=== PATIENT | male | born 1995 | race Hispanic/Latino ===

== ENCOUNTER 2018-05-02 23:08 | Emergency (ER) | payer OTHER ==
[~2018-05-02] VITALS: Ht 167.6 cm; Wt 108.4 kg
[~2018-05-02 23:08] MED LIST: PERCOCET 5-3251 EACH PO
[2018-05-02 23:56] LABS: ABSOLUTE BASOPHIL COUNT 0 /CUMM (0.0-0.2); ABSOLUTE EOSINOPHIL COUNT 0.1 /CUMM (0.0-0.7); ABSOLUTE GRANULOCYTE CT 4.7 /CUMM (1.4-6.5); ABSOLUTE LYMPH COUNT 2.1 /CUMM (1.2-3.4); ABSOLUTE MONOCYTE COUNT 0.4 /CUMM (0.10-0.60); BASOPHIL % 0.6 % (0.0-2.0); EOSINOPHIL % 0.7 % (0-5); GRANULOCYTE % 64.4 % (42.2-75.2); HEMATOCRIT 42.4 % (42-52); MEAN CORPUSCULAR HGB 27.2 PG (27.0-31.0); MEAN CORPUSCULAR HGB CONC 33.8 G/DL (33.0-37.0); MEAN CORPUSCULAR VOLUME 80.6 FL (80.0-94.0); MEAN PLATELET VOLUME 8.7 FL (7.4-10.4); PLATELET COUNT 304 /CUMM (130-400); RBC DISTRIBUTION WIDTH 14.7 % (11.5-14.5); RED BLOOD CELL CT 5.26 /CUMM (4.70-6.10); WHITE BLOOD CELL COUNT 7.4 /CUMM (4.8-10.8)
--- NOTE | 2018-05-03 00:03 | ED GENERAL ADULT ---
History of Present Illness General Chief Complaint: General Adult Stated Complaint: PER PT FINGERS TREMBLING,SOB,LIGHTHEAD Source: patient Exam Limitations: no limitations Vital Signs & Intake/Output Vital Signs & Intake/Output Vital Signs Date Time Temp Pulse Resp B/P B/P Pulse O2 O2 Flow FiO2 Mean Ox Delivery Rate 05/03 0111 98.0 74 18 147/90 98 Room Air 05/02 2319 97.6 94 24 161/110 98 Room Air ED Intake and Output 05/03 0000 05/02 1200 Intake Total 0 Output Total Balance 0 Intake, Oral 0 Patient 239 lb Weight Weight Reported by Patient Measurement Method Allergies Coded Allergies: NO KNOWN ALLERGIES (03/06/15) Reconcile Medications Oxycodone HCl/Acetaminophen (Percocet 5-325 MG Tablet) 5 MG-325 MG TABLET 1 TAB PO BID PRN PAIN Triage Note: SEE NURSES NOTES Triage Nurses Notes Reviewed? yes Onset: Abrupt Duration: minute(s): (30), constant, gone now Timing: single episode today Injury Environment: home Severity: mild, moderate No Modifying Factors: none HPI: 22-year-old male with no medical history presents for evaluation of chest tightness shortness of breath tremors and anxiety. Patient states that this started 20 minutes prior to arrival while he was arguing with his girlfriend. Symptoms lasted about 15 minutes and gradually went away. Currently he is a symptomatically feels well. Denies any chest pain shortness of breath dizziness or lightheadedness. He still reports he feels a little shaky. He has never had this before. Denies any alcohol or drug use. No significant family history of early heart disease. He does not take any medications. No recent surgery recent trauma history of PE hemoptysis or lower extremity edema. (Jacob Keller) Past History Travel History Traveled to [place] past 21 day No Medical History Any Pertinent Medical History? see below for history Neurological: NONE EENT: NONE Cardiovascular: NONE Respiratory: NONE Gastrointestinal: NONE Hepatic: NONE Renal: NONE Musculoskeletal: NONE Psychiatric: NONE Endocrine: NONE Surgical History Surgical History: N Psychosocial History What is your primary language Yi Tobacco Use: Never used ETOH Use: denies use Illicit Drug Use: denies illicit drug use Family History Hx Contributory? No (Jacob Keller) Review of Systems Review of Systems Constitutional: Reports: no symptoms. EENTM: Reports: no symptoms. Respiratory: Reports: see HPI, short of breath. Cardiovascular: Reports: see HPI, chest pain. GI: Reports: no symptoms. Genitourinary: Reports: no symptoms. Musculoskeletal: Reports: no symptoms. Skin: Reports: no symptoms. Neurological/Psychological: Reports: no symptoms. Hematologic/Endocrine: Reports: no symptoms. Immunologic/Allergic: Reports: no symptoms. All Other Systems: Reviewed and Negative (Jacob Keller) Physical Exam Physical Exam General Appearance: well developed/nourished, no apparent distress, alert, awake Head: atraumatic, normal appearance Eyes: Bilateral: normal appearance, PERRL, EOMI. Ears, Nose, Throat: normal pharynx, normal ENT inspection, hearing grossly normal Neck: normal inspection, supple, full range of motion Respiratory: normal breath sounds, chest non-tender, no respiratory distress, lungs clear Cardiovascular: regular rate/rhythm, normal peripheral pulses Peripheral Pulses: 2+ radial (R), 2+ radial (L) Gastrointestinal: soft, non-tender Back: normal inspection, normal range of motion, no vertebral tenderness Extremities: normal inspection, normal range of motion, no edema Neurologic/Psych: no motor/sensory deficits, awake, alert, oriented x 3, normal gait Skin: intact, normal color, warm/dry Lymphatic: no anterior cervical aniket Core Measures ACS in differential dx? No CVA/TIA Diagnosis: No Sepsis Present: No Sepsis Focused Exam Completed? No (Jacob Keller) Progress Differential Diagnoses I considered the following diagnoses in my evaluation of the patient: [Panic attack, drug intoxication, drug withdrawal, acute coronary syndrome, arrhythmia, electrolyte abnormality] Plan of Care: Orders Procedure Date/time Status URINE DRUG SCREEN FOR ER ONLY 05/02 2326 Complete TSH REFLEX 05/02 2326 Complete TROPONIN LEVEL 05/02 2326 Complete MAGNESIUM 05/02 2326 Complete ETHANOL 05/02 2326 Complete COMPREHENSIVE METABOLIC PANEL 05/02 2326 Complete CBC WITHOUT DIFFERENTIAL 05/02 2326 Complete EKG 05/02 2326 Active Laboratory Tests 05/03/18 0005: Urine Opiates Screen < 100, Methadone Screen < 40, Barbiturate Screen < 60, Ur Phencyclidine Scrn < 6.00, Amphetamines Screen < 100, U Benzodiazepines Scrn < 85, Urine Cocaine Screen < 50, Urine Cannabis Screen 70.00 H 05/02/18 2335: Anion Gap 11, Estimated GFR > 60, BUN/Creatinine Ratio 22.5, Glucose 118 H, Calcium 9.7, Magnesium 2.0, Total Bilirubin 0.8, AST 30, ALT 47, Alkaline Phosphatase 87, Troponin I < 0.01, Total Protein 7.5, Albumin 4.4, Globulin 3.1, Albumin/Globulin Ratio 1.4, TSH &T3 &Free T4 Intrp 3.600, CBC w Diff NO MAN DIFF REQ, RBC 5.26, MCV 80.6, MCH 27.2, MCHC 33.8, RDW 14.7 H, MPV 8.7, Gran % 64.4, Lymphocytes % 28.5, Monocytes % 5.8, Eosinophils % 0.7, Basophils % 0.6, Absolute Granulocytes 4.7, Absolute Lymphocytes 2.1, Absolute Monocytes 0.4, Absolute Eosinophils 0.1, Absolute Basophils 0, Serum Alcohol < 10.0 Patient is here for evaluation of a brief episode of chest tightness shortness of breath tremors and anxiety. This occurred while arguing with his girlfriend. Currently he is feeling well he is asymptomatic. EKG was read by the machine as A. fib but it is normal sinus rhythm with artifact. There are clear P waves. Blood work was obtained and is negative chest x-ray is clear. Discussed with patient about getting a second set of EKGs and cardiac enzymes since he presented with symptoms that started just prior to arrival. Patient is feeling better he would rather go home. He understands the risks. Due to his age and health status it is reasonable that he does not get a second set. Advised to follow-up with his primary care doctor discussed return precautions case discussed with Dr. COLLINS he agrees. Diagnostic Imaging: Viewed by Me: Radiology Read. Discussed w/RAD: Radiology Read. CXR Impression: PATIENT: DALTON AHUJA PRESENT AGE: 22 PATIENT ACCOUNT NO: [id number] : 95 LOCATION: [facility] ORDERING PHYSICIAN: Jacob MORALES SERVICE DATE: 05/03/18 EXAM TYPE: RAD - XRY-PORTABLE CHEST XRAY EXAMINATION: XR PORTABLE CHEST CLINICAL INFORMATION: Chest pain. Shortness of breath. COMPARISON: None TECHNIQUE: Portable frontal view of the chest was obtained. FINDINGS: The lungs are well expanded. There is no focal consolidation, edema, or effusion. No pneumothorax. The cardiomediastinal silhouette is within normal limits. No acute osseous abnormality. IMPRESSION: No acute pulmonary finding. DICTATED BY: Peter Weinstein MD DATE/TIME DICTATED: 05/03/1834 LICENSED CUSTOMS BROKER:MIKE DATE/TIME TRANSCRIBED:05/03/1834 CONFIDENTIAL, DO NOT COPY WITHOUT APPROPRIATE AUTHORIZATION. <Electronically signed in Other Vendor System> SIGNED BY: Peter Weinstein MD 05/03/1838 Initial ED EKG: normal sinus rhythm, BORDERLINE INFERIOR T WAVES (Jcaob Keller) Departure Departure Disposition: HOME OR SELF CARE Condition: Stable Clinical Impression Primary Impression: Anxiety attack Referrals: Reed MENDEZ,Jarret Ferrell (PCP/Family) Additional Instructions: Make a follow-up appointment with YOUr primary care doctor to review all results of today's visit. Monitor symptoms return with any concerns. Please go over all results of today's visit with your primary care doctor. Contact your primary care doctor to let them know you were here in the emergency room. There may be nonspecific findings which may not be related to your visit today here in the emergency room but may require further evaluation and chronic monitoring by your primary care doctor. If you had a laceration today the chance of foreign body always remains. You should follow-up with your primary care doctor for recheck in 3-5 days for a wound check. If you had an x-ray done there is a chance that a fracture could have been missed on initial read and you should follow-up with your primary care doctor for repeat x-rays if symptoms persist. If your blood pressure was elevated here in the emergency room please have rechecked by [facility] primary care doctor within the next 48. If you were prescribed a narcotic here in the emergency room or any type of controlled substances you're not allowed to drive while taking this medication or operate any type of heavy machinery. Narcotics can make you feel lightheaded dizziness nausea and can cause constipation. You may need to supervisor opening and picking a stool softener. Thank you for choosing [facility] emergency room. Please return to the emergency room immediately if you have any other concerns worsening of symptoms. Departure Forms: Customer Survey General Discharge Information (Jacob Keller) PA/HOG SLAUGHTERER Co-Sign Statement Statement: ED Attending supervision documentation- I saw and evaluated the patient. I have also reviewed all the pertinent lab results and diagnostic results. I agree with the findings and the plan of care as documented in the PA's/HOG SLAUGHTERER's documentation. x I have reviewed the ED Record and agree with the PA's/HOG SLAUGHTERER's documentation. [] Additions or exceptions (if any) to the PAs/HOG SLAUGHTERER's note and plan are summarized below: [] (Blaise MENDEZ,Juan) Critical Care Note Critical Care Note Critical Care Time: non-applicable (Perfecto MORALES,Jacob)
--- NOTE | 2018-05-03 00:39 | RADIOLOGY REPORT ---
EXAMINATION: XR PORTABLE CHEST CLINICAL INFORMATION: Chest pain. Shortness of breath. COMPARISON: None TECHNIQUE: Portable frontal view of the chest was obtained. FINDINGS: The lungs are well expanded. There is no focal consolidation, edema, or effusion. No pneumothorax. The cardiomediastinal silhouette is within normal limits. No acute osseous abnormality. IMPRESSION: No acute pulmonary finding.
[2018-05-03 01:11] VITALS: BP 147/90
== END 2018-05-03 01:11 ==
LOC: ERH 23:08
PROVIDERS: Physician Assistant Medical
DX: F41.9 Anxiety disorder, unspecified (principal); R06.02 Shortness of breath; R25.1 Tremor, unspecified; R42 Dizziness and giddiness
CPT/HCPCS: 71045; 80307; 93005; 93010; G0480